=== PATIENT | male | born 1975 | race Caucasian/White ===

== ENCOUNTER 2025-02-17 07:57 | Emergency (ER) | payer SELFPAY | END 2025-02-17 09:00 | disposition home or self-care (01) | LOC: JP.ED 07:57 | DX: H66.91 Otitis media, unspecified, right ear (principal); F17.200 Nicotine dependence, unspecified, uncomplicated; Z91.030 Bee allergy status | CPT/HCPCS: 99283 ==

== ENCOUNTER 2025-06-01 01:43 | Emergency (ER) | payer SELFPAY ==
[2025-06-01 02:01] LABS: BASOPHILS ABSOLUTE AUTO 0.08 K/uL (0.00-0.10); BASOPHILS PERCENT AUTO 0.7 % (0.1-1.3); EOSINOPHILS ABSOLUTE AUTO 0.07 K/uL (0.00-0.40); EOSINOPHILS PERCENT AUTO 0.6 % (0.0-5.4); IMMATURE GRAN ABSOLUTE AUTO 0.03 K/uL (0.00-0.23); IMMATURE GRAN PERCENT AUTO 0.3 % (0.0-0.7); LYMPHOCYTES ABSOLUTE AUTO 2.48 K/uL (0.8-3.3); LYMPHOCYTES PERCENT AUTO 22.9 % (11.4-47.7); MONOCYTES ABSOLUTE AUTO 0.55 K/uL (0.20-0.90); MONOCYTES PERCENT AUTO 5.1 % (3.3-12.6); NEUTROPHILS ABSOLUTE AUTO 7.61 K/uL (1.0-7.6); NEUTROPHILS PERCENT AUTO 70.4 % (40.0-78.1); PLATELET COUNT,PLT 195 K/uL (130-375); RED BLOOD CELL COUNT 5.04 M/uL (4.14-5.76); WHITE BLOOD CELL COUNT,WBC 10.8 K/uL (3.2-11.0)
[2025-06-01 02:13] LABS: INR 1.1
[2025-06-01 02:17] LABS: A/G RATIO 1.2 (1.2-2.2); ALANINE AMINOTRANSFERASE,ALT 53 U/L (12-78); ASPARTATE AMNIOTRANSFERASE,AST 27 U/L (15-37); BILIRUBIN TOTAL 0.2 mg/dL (0.2-1.0); BLOOD UREA NITROGEN,BUN 12 mg/dL (7-18); CARBON DIOXIDE,CO2 23 mmol/L (21-32); CHLORIDE,CL 101 mmol/L (100-108); CREATININE 1.0 mg/dL (0.8-1.3); EST CRCL DRUG DOSING (CG) 104.45 mL/min; ESTIMATED GFR 91 mL/min (>60); GLUCOSE RANDOM 153 mg/dL (74-106); POTASSIUM,K 3.9 mmol/L (3.6-5.2); PROTEIN TOTAL,TP 7.8 g/dL (6.4-8.2); SODIUM,NA 136 mmol/L (140-148)
[2025-06-01 03:41] LABS: AMPHETAMINES SCREEN, URINE NEGATIVE (NEGATIVE); METHADONE SCREEN, URINE NEGATIVE (NEGATIVE); METHAMPHETAMINES SCREEN, URINE NEGATIVE (NEGATIVE); OXYCODONE SCREEN,URINE NEGATIVE (NEGATIVE); PROPOXYPHENE SCREEN,URINE NEGATIVE (NEGATIVE); THC SCREEN,URINE 50 NG/ML NEGATIVE (NEGATIVE)
== END 2025-06-01 03:54 | disposition left against medical advice (07) ==
LOC: JP.ED 01:43
DX: F10.10 Alcohol abuse, uncomplicated (principal); Z91.030 Bee allergy status
CPT/HCPCS: 36415; 80053; 80143; 80179; 80305-QW; 80307; 85025; 85610; 99284